=== PATIENT | female | born 1995 | race Caucasian/White ===

== ENCOUNTER 2016-09-01 12:40 | Emergency (ER) | payer SELFPAY ==
[~2016-09-01] VITALS: Ht 170.2 cm; Wt 78.6 kg
[~2016-09-01 12:40] MED LIST: CIPRO500 MG PO; DIFLUCAN150 MG PO; DOXYCYCLINE HY100 MG PO; HYDROCODON-ACE1 EAC7 PO; IBUPROFEN800 MG PO; METRONIDAZOLE500 MG PO; PENTASA250 MG PO; TORADOL10 MG PO; TRI-SPRINTEC1 EACH PO; Tums,OsCal PO; ZOFRAN ODT4 MG PO; ZOFRAN4 MG PO; birth control
[2016-09-01 13:43] LABS: ADD MIUA? YES; BILIRUBIN NEGATIVE; BLOOD MODERATE; COLOR YELLOW ((YELLOW)); GLUCOSE (STRIP) NEGATIVE; KETONES NEGATIVE; LEUKOCYTES LARGE; NITRITE NEGATIVE; PROTEIN (STRIP) 30; SPECIFIC GRAVITY 1.011 (1.000-1.030); UROBILINOGEN 0.2 MG/DL (0.2-1.0)
[2016-09-01 13:52] LABS: HEMATOCRIT 39.6 % (36.0-46.0); MCH 29.6 PG (29.0-34.0); MCHC 33.3 G/DL (30.0-36.0); MCV 88.8 FL (83-99); PLATELET COUNT 228 K/uL (156-360); RBC DIS.WIDTH-SD 38.5 % (39-53); RED BLOOD COUNT 4.46 M/uL (3.80-5.20); WHITE BLOOD COUNT 8.7 K/uL (4.1-10.2)
[2016-09-01 14:04] LABS: CHLORIDE 105 mEq/L (99-109); POTASSIUM 4.1 mEq/L (3.7-5.4); SODIUM 138 mEq/L (136-147)
[2016-09-01 14:06] LABS: GLUCOSE 80 mg/dL (70-99)
[2016-09-01 14:07] LABS: ANION GAP 8 MEQ/L (2-14)
[2016-09-01 14:08] LABS: TOTAL BILIRUBIN 0.5 mg/dL (0.0-1.0)
[2016-09-01 14:10] LABS: ALKALINE PHOSPHATASE 59 IU/L (3-129); GFR ESTIMATE (CALCULATED) > 59 mL/min/
[2016-09-01 14:11] LABS: UREA NITROGEN (BUN) 7 mg/dL (9-23)
[2016-09-01 14:19] LABS: QUANTITATIVE HCG < 4.0 MIU/ML
[2016-09-01 14:24] LABS: BACTERIA NONE SEEN /HPF; EPITHELIAL CELLS RARE /HPF; MUCUS TRACE /LPF; UCUL ADDED? YES; WHITE BLOOD CELLS TNTC /HPF (0-5)
[2016-09-01] MEDS ORDERED: PYRIDIUM200 MG PO (15:54)
[2016-09-01] MEDS ORDERED: KEFLEX500 MG PO (15:54)
[2016-09-01 15:58] VITALS: BP 125/75
== END 2016-09-01 16:02 | disposition home or self-care (01) ==
LOC: EME 12:40
DX: N39.0 Urinary tract infection, site not specified (principal); F17.200 Nicotine dependence, unspecified, uncomplicated
CPT/HCPCS: 80053; 81003; 84702; 85027; 87077; 87086; 87186; 99281; 99285

== ENCOUNTER 2017-07-20 07:57 | Inpatient (IN) | payer BC ==
[~2017-07-20] VITALS: Ht 170.2 cm; Wt 102.1 kg
[2017-07-20] VITALS (26 sets, daily range): BP systolic 105–141; BP diastolic 52–86
[~2017-07-20 07:57] MED LIST changes: +KEFLEX500 MG PO; +PYRIDIUM200 MG PO
[2017-07-20 11:20] LABS: BASOPHIL (%) 0.4 % (0-1); EOSINOPHIL (%) 2.3 % (0-5); EOSINOPHIL COUNT 0.1 K/uL (0-0.3); HEMATOCRIT 32.5 % (36.0-46.0); HEMOGLOBIN 11.2 G/DL (11.9-15.5); IMMATURE GRANULOCYTE (%) 0.4 % (0.0-0.7); LYMPHOCYTE (%) 23.3 % (15-42); LYMPHOCYTE COUNT 1.3 K/uL (1.0-2.8); MCH 31.9 PG (29.0-34.0); MCHC 34.5 G/DL (30.0-36.0); MCV 92.6 FL (83-99); MONOCYTE (%) 9.7 % (3-12); MONOCYTE COUNT 0.6 K/uL (0-0.8); NEUTROPHIL (%) 63.9 % (45-76); NEUTROPHIL COUNT 3.6 K/uL (1.8-6.4); PLATELET COUNT 151 K/uL (156-360); RBC DIS.WIDTH-CV 13.4 % (11.8-14.6); RBC DIS.WIDTH-SD 44.9 % (39-53); RED BLOOD COUNT 3.51 M/uL (3.80-5.20); WHITE BLOOD COUNT 5.7 K/uL (4.1-10.2)
[2017-07-21] VITALS (13 sets, daily range): BP systolic 95–188; BP diastolic 52–105
[2017-07-21 04:23] LABS: BASE EXCESS -8.9 mEq/L (-3 to +3); BICARBONATE 23.4 mEq/L (22-26); CARBOXY HGB 0.6 % (0-5); METHEMOGLOBIN 1.7 % (0-1.5); PCO2 79 mm Hg (35-45); PO2 < 32 mm Hg (80-100); SITE CORD; pH 7.08 (7.35-7.45)
[2017-07-21 04:27] LABS: BASE EXCESS -5.7 mEq/L (-3 to +3); BICARBONATE 21.6 mEq/L (22-26); CARBOXY HGB 1.4 % (0-5); METHEMOGLOBIN 1.7 % (0-1.5); PCO2 47 mm Hg (35-45); PO2 < 32 mm Hg (80-100); SITE CORD; pH 7.27 (7.35-7.45)
[2017-07-22 07:36] LABS: BASOPHIL (%) 0.3 % (0-1); EOSINOPHIL (%) 2.9 % (0-5); EOSINOPHIL COUNT 0.2 K/uL (0-0.3); HEMATOCRIT 29.9 % (36.0-46.0); HEMOGLOBIN 10.1 G/DL (11.9-15.5); IMMATURE GRANULOCYTE (%) 0.3 % (0.0-0.7); LYMPHOCYTE (%) 27.5 % (15-42); LYMPHOCYTE COUNT 1.9 K/uL (1.0-2.8); MCH 31.7 PG (29.0-34.0); MCHC 33.8 G/DL (30.0-36.0); MCV 93.7 FL (83-99); MONOCYTE (%) 9.4 % (3-12); MONOCYTE COUNT 0.7 K/uL (0-0.8); NEUTROPHIL (%) 59.6 % (45-76); NEUTROPHIL COUNT 4.1 K/uL (1.8-6.4); PLATELET COUNT 125 K/uL (156-360); RBC DIS.WIDTH-CV 13.5 % (11.8-14.6); RBC DIS.WIDTH-SD 45.9 % (39-53); RED BLOOD COUNT 3.19 M/uL (3.80-5.20); WHITE BLOOD COUNT 6.9 K/uL (4.1-10.2)
== END 2017-07-22 16:56 | disposition home or self-care (01) | DRG 775 ==
LOC: LDRP-OP → 2WEST 07:58 → LDRP-OP 08-18 07:09
PROVIDERS: Advanced Practice Midwife; Obstetrics & Gynecology; Obstetrics & Gynecology Obstetrics
PROC: 3E0R3BZ Introduction of Anesthetic Agent into Spinal Canal, Percutaneous Approach (ICD-10-PCS; principal; 2017-07-20)
PROC: 00HU33Z Insertion of Infusion Device into Spinal Canal, Percutaneous Approach (ICD-10-PCS; principal; 2017-07-20)
PROC: 3E033VJ Introduction of Other Hormone into Peripheral Vein, Percutaneous Approach (ICD-10-PCS; principal; 2017-07-20)
PROC: 10907ZC Drainage of Amniotic Fluid, Therapeutic from Products of Conception, Via Natural or Artificial Opening (ICD-10-PCS; principal; 2017-07-20)
PROC: 10E0XZZ Delivery of Products of Conception, External Approach (ICD-10-PCS; 2017-07-21)
PROC: 0W8NXZZ Division of Female Perineum, External Approach (ICD-10-PCS; 2017-07-21)
DX: O36.63X0 Maternal care for excessive fetal growth, third trimester, not applicable or unspecified (principal); O99.62 Diseases of the digestive system complicating childbirth; K50.90 Crohn's disease, unspecified, without complications; R11.0 Nausea; O99.213 Obesity complicating pregnancy, third trimester; E66.3 Overweight; Z68.29 Body mass index [BMI] 29.0-29.9, adult; Z3A.39 39 weeks gestation of pregnancy; Z37.0 Single live birth
CPT/HCPCS: 36600; 82803; 82948; 85025; C1755; G0378; J2405; J3010; J7120